=== PATIENT | male | born 1995 | race Caucasian/White ===

== ENCOUNTER 2022-01-09 19:46 | Emergency (ER) | payer BC, OTHER ==
[~2022-01-09] VITALS: Ht 175.2 cm; Wt 77.1 kg
[2022-01-09] MEDS ORDERED: oxyCODONE/APAP 5/325MG (PERCOCET 5) TABLET PO ONE (20:00)
[2022-01-09] MEDS ORDERED: PENI500T PO (20:08)
[2022-01-09] MEDS ORDERED: ACHD5005 PO (20:08)
--- NOTE | 2022-01-09 20:08 | ED EENT ---
History of Present Illness General Chief Complaint: Dental Problems/Pain Stated Complaint: UPPER JAW PAIN Source: patient History of Present Illness Date Seen by Provider: Jan 09, 2022 Time Seen by Provider: 19:30 Initial Comments Patient is a 26-year-old male presents with right sided upper dental/maxillary pain for 3 days. Patient reports intermittent pain secondary to dental decay for the past 2 months. Increased pain prior to ED arrival. Patient did take Advil. He has not yet sought follow-up appointment with the dentist. Denies dysphonia trismus drooling or dysphagia. No other acute symptoms or complaints. Timing/Duration: gradual Severity: moderate Prearrival Treatment: other Modifying Factors: Improves With Other Associated Symptoms: other Allergies and Home Medications Allergies Coded Allergies: No Known Drug Allergies (Unverified , 01/09/22) Patient Home Medication List Home Medication List Reviewed: Yes Review of Systems Review of Systems Constitutional: see HPI Eyes: See HPI Ears: See HPI Nose: see HPI Mouth: no symptoms reported, see HPI Throat: see HPI Respiratory: see HPI Cardiovascular: see HPI Musculoskeletal: see HPI Skin: see HPI Neurological: See HPI Hematologic/Lymphatic: See HPI Immunological/Allergic: see HPI All Other Systems Reviewed Negative Unless Noted: Yes Past Uarlpjs-Hyhhax-Slcffz Hx Patient Social History Tobacco Use?: Yes Substance use?: No Alcohol Use?: No Pt feels they are or have been: No Immunizations Up To Date COVID19 Vaccine [employer]: Moderna Physical Exam Height, Weight, BMI Height: '" Weight: lbs. oz. kg; BMI Method: General Appearance: mild distress Eyes: bilateral eye normal inspection, bilateral eye PERRL Ears: bilateral ear auricle normal, bilateral ear TM normal Nose: normal inspection Mouth/Throat: pharynx normal; No trismus, No uvula swelling; other (Right upper maxillary dental pain/tenderness with gingival swelling and tenderness) Neck: non-tender, full range of motion Neurologic/Psychiatric: no motor/sensory deficits, alert, oriented x 3 Skin: normal color Progress/Results/Core Measures Results/Orders My Orders Orders - TIFFANI AWAN DO Oxycodone/Apap 5/325mg Tablet (Percocet (01/09/22 20:00) Amoxicillin/Clavulanate Tablet (Augmenti (01/09/22 20:15) Departure Communication (Admissions) Dental pain secondary to dental caries with caries. First dose of antibiotics and pain medication given in the ED. Impression Primary Impression: Pain due to dental caries Disposition: HOME, SELF-CARE Condition: Stable Departure-Patient Inst. Decision time for Depature: 20:07 Referrals: NO,LOCAL PHYSICIAN (PCP/Family) Primary Care Physician Patient Instructions: Dental Pain Add. Discharge Instructions: Please take 600 mg of ibuprofen 3 times daily and newly prescribed medication as directed and follow-up with your dentist in 3 to 5 days. Return to the ED if new or worsening symptoms. All discharge instructions reviewed with patient and/or family. Voiced understanding. Scripts Hydrocodone/Acetaminophen (Hydrocodone-Acetamin 5-325 mg) 1 Each Tablet 1 TAB PO Q4H PRN for PAIN-MODERATE (5-7), #10 TAB Prov: TIFFANI AWAN DO 01/09/22 Penicillin V Potassium (Penicillin V Potassium) 500 Mg Tablet 500 MG PO QID, #40 TAB Prov: TIFFANI AWAN DO 01/09/22 TIFFANI AWAN DO Jan 09, 2022 20:08
[2022-01-09 20:10] VITALS: BP 139/92
[2022-01-09] MEDS ORDERED: AUGMENTIN 875 MG TAB (AMOXICILLIN/CLAVULANATE) PO SCH (20:15)
== END 2022-01-09 20:11 | disposition home or self-care (01) ==
LOC: ER FS 19:51
DX: K02.9 Dental caries, unspecified (principal); Z72.0 Tobacco use
CPT/HCPCS: 99283

== ENCOUNTER 2023-01-11 18:37 | Emergency (ER) | payer BC ==
[~2023-01-11] VITALS: Ht 175.2 cm; Wt 90.9 kg
[~2023-01-11 18:37] MED LIST: ACHD5005 PO; PENI500T PO
[2023-01-11] MEDS ORDERED: AUGMENTIN 875 MG TAB (AMOXICILLIN/CLAVULANATE) PO STA (18:54)
[2023-01-11] MEDS ORDERED: ACHD5005 PO (18:58)
[2023-01-11] MEDS ORDERED: AMOX1TAB12 PO (18:58)
--- NOTE | 2023-01-11 19:01 | ED EENT ---
History of Present Illness General Chief Complaint: Dental Problems/Pain Stated Complaint: INFECTED WISDOM TOOTH, PAIN Source: patient History of Present Illness Date Seen by Provider: Jan 11, 2023 Time Seen by Provider: 18:44 Initial Comments 27-year-old male presenting with complaints of increasing pain to his lower wisdom teeth. He primarily is having pain on the right side that has been getting worse over the last several days. He had been taking rhwt-xge-[id number] A leve or naproxen but it was not helping with his pain anymore. He does have an appointment towards the end of the month to see dental surgeon and have his impacted wisdom tooth extracted. He had similar issues a year ago and had to have the upper wisdom teeth extracted. He denies having fever, chills, nausea, vomiting, facial swelling. He also has been trying to use ewhy-kyu-qsutcxn Anbesol to numb the pain. Timing/Duration: gradual Severity: severe Location: dental Prearrival Treatment: over the counter meds Modifying Factors: Worse With Other (eating and drinking makes it worse) Associated Symptoms: No change in hearing, No cough, No drooling, No ear drainage, No facial pain/swelling, No fever, No malaise, No nasal congestion/drainage, No poor fluid intake, No poor solids intake, No sinus infection, No sore throat; tooth pain; No voice change Allergies and Home Medications Allergies Coded Allergies: No Known Drug Allergies (Unverified , 01/09/22) Patient Home Medication List Home Medication List Reviewed: Yes Amoxicillin/Potassium Clav (Amox Tr-K Clv 875-125 mg Tab) 875 Mg-125 Mg Tablet, 1 EACH PO BID Prescribed by: WATSON MANZANARES on 01/11/231857 Hydrocodone/Acetaminophen (Hydrocodone-Acetamin 5-325 mg) 5 Mg-325 Mg Tablet, 1 TAB PO Q4H PRN for PAIN-SEVERE (8-10) Prescribed by: WATSON MANZANARES on 01/11/231858 Discontinued Medications Hydrocodone/Acetaminophen (Hydrocodone-Acetamin 5-325 mg) 1 Each Tablet, 1 TAB PO Q4H PRN for PAIN-MODERATE (5-7) Prescribed by: TIFFANI AWAN on 01/09/222008 Penicillin V Potassium (Penicillin V Potassium) 500 Mg Tablet, 500 MG PO QID Prescribed by: TIFFANI AWAN on 01/09/222007 Review of Systems Review of Systems Constitutional: No chills, No fever Eyes: No Symptoms Reported Ears: No Symptoms Reported Nose: no symptoms reported Mouth: see HPI Throat: no symptoms reported Respiratory: no symptoms reported Cardiovascular: no symptoms reported Gastrointestinal: no symptoms reported Musculoskeletal: no symptoms reported Skin: no symptoms reported Neurological: No Symptoms Reported Past Vxzliqb-Pgufob-Sljlvz Hx Past Medical History Surgery/Hospitalization HX: Maxillary wisdom teeth extraction Physical Exam Height, Weight, BMI Height: '" Weight: lbs. oz. kg; 25.00 BMI Method: General Appearance: WD/WN, no apparent distress Eyes: bilateral eye PERRL, bilateral eye EOMI Mouth/Throat: pharynx normal, dental tenderness; No trismus; other (bilateral wisdom tooth impaction of mandible. Tender to palpation right side. increased erythema and inflammation to gums around the wisdom teeth) Neck: non-tender, full range of motion, supple, normal inspection Cardiovascular: normal peripheral pulses Neurologic/Psychiatric: alert, oriented x 3 Skin: normal color, warm/dry Progress/Results/Core Measures Results/Orders My Orders Orders - WATSON MANZANARES MD Amoxicillin/Clavulanate Tablet (Augmenti (01/11/23 18:54) Rx-Hydrocodone/Apap 5-325 Mg (Rx-Vicodin (01/11/23 19:00) Progress Progress Note : Progress Note Counseled patient on use of hftq-mai-gnioxwa pain medicine of acetaminophen 650 mg every 6 hours as needed for pain in addition to naproxen or Aleve 2 pills every 12 hours as needed for pain and inflammation. Alternatively he could take ibuprofen or Advil 800 mg or 4 yagz-ntr-gltyvvt pills every 8 hours as needed for pain and inflammation. Take the full course of antibiotics, amoxicillin/clavulanic acid 875/125 1 pill every 12 hours x10 days. For severe pain hydrocodone/acetaminophen 5/325 mg 1 by mouth every 4 hours as needed for severe pain for the first 3 days. Dispense 15 tablets for home and send with 4 take-home pills for pain tonight since the pharmacies are already closed. Given the first dose of antibiotics, Augmentin 875 p.o. x1 here in the ED. Again this was due to the pharmacies being closed until tomorrow morning. Encouraged to establish care with a primary care provider for continued pain management if needed. Continue to follow-up with a dentist for definitive management and care. Keep appointment in 3 weeks for dental extraction of impacted wisdom teeth Departure Impression Primary Impression: Tooth, impacted Additional Impression: Pain, dental Disposition: HOME, SELF-CARE Condition: Stable Departure-Patient Inst. Decision time for Depature: 18:57 Referrals: NO,LOCAL PHYSICIAN (PCP) Primary Care Physician [facility] Patient Instructions: Dental Pain ED, Impacted Tooth Add. Discharge Instructions: Continue using wbob-usg-ycvpbvs naproxen or Aleve to help with pain and inflammation. You could alternatively try using ibuprofen or Advil/Motrin to help with pain and inflammation. Take the full course of antibiotics to help treat for possible infection making her pain worse. You could use the stronger pain medicine of hydrocodone/acetaminophen 5/325 mg 1 every 4 hours as needed for severe pain for the first 3 days. Follow-up with primary care provider for continued pain control if needed prior to your dental surgery All discharge instructions reviewed with patient and/or family. Voiced understanding. Scripts Hydrocodone/Acetaminophen (Hydrocodone-Acetamin 5-325 mg) 5 Mg-325 Mg Tablet 1 TAB PO Q4H PRN for PAIN-SEVERE (8-10) for 3 Days, #15 TAB 0 Refills Prov: WATSON MANZANARES MD 01/11/23 Amoxicillin/Potassium Clav (Amox Tr-K Clv 875-125 mg Tab) 875 Mg-125 Mg Tablet 1 EACH PO BID for dental infection for 10 Days, #20 TAB 0 Refills Prov: WATSON MANZANARES MD 01/11/23 WATSON MANZANARES MD Jan 11, 2023 19:01
[2023-01-11 19:12] VITALS: BP 152/104
== END 2023-01-11 19:12 | disposition home or self-care (01) ==
LOC: EDUNIT# 18:37 → ER FS 18:40
DX: K01.1 Impacted teeth (principal); Z98.818 Other dental procedure status
CPT/HCPCS: 99283